=== PATIENT | male | born 1985 | race Two or more races ===

== ENCOUNTER 2024-05-03 16:45 | Emergency (ER) | payer BC ==
[~2024-05-03] VITALS: Ht 172.7 cm; Wt 80.9 kg
[2024-05-03 17:06] VITALS: BP 125/71; PULSE 64; TEMP 97.8; O2SAT 99
[2024-05-03] MEDS: ibuprofen tablet 400 MG TABLET PO ONE (17:45)
[2024-05-03 17:46] VITALS: RESP 16
[2024-05-03] MEDS: HYDROcodone/acetaminophen 10/325mg tab PO ONE (17:46)
== END 2024-05-03 18:00 | disposition home or self-care (01) ==
LOC: ER 16:46
DX: S82.891A Other fracture of right lower leg, initial encounter for closed fracture (principal); S93.401A Sprain of unspecified ligament of right ankle, initial encounter; W21.05XA Struck by basketball, initial encounter; Y93.67 Activity, basketball; Y92.89 Other specified places as the place of occurrence of the external cause; Y99.8 Other external cause status
CPT/HCPCS: 73610; 99283; L4360